=== PATIENT | female | born 1965 | race Caucasian/White ===

== ENCOUNTER → 2016-08-15 | Outpatient (CLI) | payer OTHER ==
--- NOTE | 2016-08-15 14:06 | MA ---
Screening Digital Mammogram With Tomosynthesis Clinical Indications: Routine screening. Technique: Standard digital cephalocaudal and tomosynthesis mediolateral oblique projections are obt ained. The digital images were processed by the [employer] computer aided detection system. Comparison: July 2015 and May 2014 Breast density: B; There are scattered fibroglandular densities. Findings: CAD was reviewed. No suspicious findings are identified. Impression: Negative mammogram. BI-RADS 1. Recommendation: Routine screening is recommended in one year. [facility] will send a result letter to the patient. Negative mammography should not preclude additional workup of a clinically suspicious finding. The patient's information is entered into a reminder system with a target due date for her next mammo gram.
== END ==
LOC: FIMAGING 09:35
DX: Z12.31 Encounter for screening mammogram for malignant neoplasm of breast (principal)
CPT/HCPCS: G0202

== ENCOUNTER → 2016-11-29 | Outpatient (CLI) | payer OTHER ==
[~2016-11-29] MED LIST: IOPAMIDOL (ISOVUE 370) 100 ML BTL IV ONE
== END ==
LOC: FIMAGING 11:19
PROVIDERS: ATTEND Internal Medicine
DX: R07.81 Pleurodynia (principal); I77.810 Thoracic aortic ectasia
CPT/HCPCS: Q9967

== ENCOUNTER → 2017-06-11 | Outpatient (CLI) | payer OTHER | LOC: FIMAGING 09:15 | PROVIDERS: ATTEND Internal Medicine | DX: I71.2 Thoracic aortic aneurysm, without rupture (principal) | CPT/HCPCS: Q9967 ==

== ENCOUNTER → 2017-08-16 | Outpatient (CLI) | payer OTHER | LOC: FIMAGING 11:53 | PROVIDERS: ATTEND Internal Medicine | DX: Z12.31 Encounter for screening mammogram for malignant neoplasm of breast (principal) ==

== ENCOUNTER → 2018-07-21 | Outpatient (CLI) | payer OTHER | LOC: FIMAGING 15:08 | PROVIDERS: ATTEND Physician Assistant | DX: M85.441 Solitary bone cyst, right hand (principal) ==

== ENCOUNTER → 2018-08-20 | Outpatient (CLI) | payer BC | LOC: FIMAGING 13:49 | PROVIDERS: ATTEND Internal Medicine | DX: Z12.31 Encounter for screening mammogram for malignant neoplasm of breast (principal); R92.8 Other abnormal and inconclusive findings on diagnostic imaging of breast ==

== ENCOUNTER → 2018-09-01 | Outpatient (CLI) | payer BC ==
[~2018-09-01] MED LIST changes: +IOHEXOL 350mgI/ML (OMNIPAQUE) 150 ML BTL IV ONE; -IOPAMIDOL (ISOVUE 370) 100 ML BTL IV ONE
== END ==
LOC: BMCIMAGING 11:17
PROVIDERS: ATTEND Internal Medicine
DX: R92.8 Other abnormal and inconclusive findings on diagnostic imaging of breast (principal); I71.2 Thoracic aortic aneurysm, without rupture
CPT/HCPCS: Q9967

== ENCOUNTER 2019-01-14 11:10 | Emergency (ER) | payer BC | END 2019-01-14 12:52 | disposition home or self-care (01) ==